=== PATIENT | female | born 1945 | race Caucasian/White ===

== ENCOUNTER 2016-10-20 11:23 | Emergency (ER) | payer MEDICARE ==
[2016-10-20] MEDS ORDERED: NACL 0.9% 500 ML 500 ML IV ONE ×2 (12:09→16:30)
[2016-10-20] MEDS ORDERED: ZOFRAN IV ONE (12:10)
[2016-10-20 12:28] LABS: Hematocrit 38.8 % (30.3-42.9); Hemoglobin 12.7 gm/dl (10.1-14.3); Mean Corpuscular HGB Conc 33 % (30-34); Mean Corpuscular Hemoglobin 28 pg (28-32); Mean Corpuscular Volume 86 fl (79-97); Platelet Count 342 K/mm3 (140-440); Red Cell Distribution Width 13.5 % (13.2-15.2); White Blood Count 8.5 K/mm3 (4.5-11.0)
--- NOTE | 2016-10-20 12:55 | Emergency Department Report ---
HPI - General Chief Complaint: Nausea/Vomiting/Diarrhea Time Seen by Provider: 10/20/16 12:04 - HPI HPI: This is a 71-year-old female who presents to the emergency department from home, with her daughter bedside translating, with complaint of a 2 day history of nausea and vomiting. Over this time she has been complaining of some generalized weakness, decreased appetite and increased fatigue. She also complains of some bilateral shoulder pain without any known trauma. She has a history of diabetes and hypertension. She is not taken anything for symptoms prior to presentation. No recent travel or sick contacts at home. Her primary care doctor is a Dr. Bose. She denies any tobacco or illicit drug use or abuse. ED Past Medical Hx - Past Medical History Hx Hypertension: Yes Hx Diabetes: Yes Additional medical history: high cholesterol - Social History Smoking Status: Never Smoker Substance Use Type: None - Medications Home Medications: Home Medications Medication Instructions Recorded Confirmed Last Taken Type Acarbose 25 mg PO TID 09/22/16 10/20/16 09/21/16 History Cyclobenzaprine 10 mg PO TID 09/22/16 10/20/16 09/21/16 History Metformin HCl 500 mg PO DAILY 09/22/16 10/20/16 09/21/16 History Aspirin [Aspirin BABY CHEW TAB] 81 mg PO QDAY #30 tab.chew 09/27/16 10/20/16 Unknown Rx Carvedilol [Coreg] 3.125 mg PO BID #60 tablet 09/27/16 10/20/16 Unknown Rx Lisinopril [Zestril TAB] 5 mg PO QDAY #30 tablet 09/27/16 10/20/16 Unknown Rx Simvastatin 40 mg PO HS #30 09/27/16 10/20/16 Unknown Rx ED Review of Systems ROS: Stated complaint: N/V Other details as noted in HPI Comment: All other systems reviewed and negative Constitutional: weakness. denies: fever Eyes: denies: eye pain, eye discharge, vision change ENT: denies: ear pain, throat pain Respiratory: denies: cough, shortness of breath, wheezing Cardiovascular: denies: palpitations, edema Gastrointestinal: nausea, vomiting Genitourinary: denies: urgency, dysuria, discharge Musculoskeletal: arthralgia. denies: back pain Skin: denies: rash, lesions Neurological: denies: headache, weakness Physical Exam - Physical Exam Vital Signs: Vital Signs 10/20/16 10/20/16 11:59 12:07 Temperature 98.1 F Pulse Rate 114 H Respiratory 18 18 Rate Blood Pressure 112/75 O2 Sat by Pulse 96 96 Oximetry Physical Exam: GENERAL: The patient is well-developed well-nourished. HEENT: Normocephalic. Atraumatic. Extraocular motions are intact. Patient has moist mucous membranes. Pupils equal reactive to light bilaterally. Oropharynx is clear. Poor dentition with multiple missing teeth. NECK: Supple. Trachea is midline. CHEST/LUNGS: Clear to auscultation. There is no respiratory distress noted. HEART/CARDIOVASCULAR: Regular. There is mild tachycardia. There is no gallop rub or murmur. ABDOMEN: Abdomen is soft, nontender. Patient has normal bowel sounds. There is no abdominal distention. SKIN: Skin is warm and dry. NEURO: The patient is awake, alert, and oriented. The patient is cooperative. The patient has no focal neurologic deficits. The patient has normal speech. Cranial nerves II through XII grossly intact. MUSCULOSKELETAL: There is no tenderness or deformity. There is no limitation range of motion. There is no evidence of acute injury. Muscle strength 5 out of 5 upper and lower extremities bilaterally. ED Course Vital Signs 10/20/16 10/20/16 11:59 12:07 Temperature 98.1 F Pulse Rate 114 H Respiratory 18 18 Rate Blood Pressure 112/75 O2 Sat by Pulse 96 96 Oximetry ED Medical Decision Making - Lab Data Result diagrams: 10/20/16 12:11 10/20/16 12:11 - EKG Data -: EKG Interpreted by Ut EKG shows normal: sinus rhythm, axis, intervals, QRS complexes, ST-T waves (T- wave inversions to the anterior leads) Rate: tachycardia (114 bpm) - EKG Data When compared to previous EKG there are: changes noted (new T-wave inversions to the anterior leads when compared to 09/21/16) Interpretation: other (sinus rhythm, tachycardia, T-wave inversions to the anterior leads) - Radiology Data Radiology results: report reviewed CT angiography of the chest shows no evidence of pulmonary embolus. Indeterminate left apical density. This most likely represents focal pleural scarring however a pleural-based neoplasm is difficult to completely exclude. CT of the abdomen and pelvis with IV contrast does not show any acute process. - Medical Decision Making 71-year-old female presents to the emergency department with complaint of a 2 day history of nausea and vomiting. Chest complains of some generalized fatigue and/or weakness. However the patient appears to be a very spry 71-year- old female. She has full muscle strength to the upper and lower extremities. There are no focal, motor or sensory deficits currently and her cranial nerves are intact. Labs are mostly unremarkable. There is no leukocytosis, electrolyte abnormalities, renal insufficiency, glucose abnormalities. She has a negative troponin. She has normal-appearing LFTs and bilirubin. However the patient does have a elevated lipase of 140. This is most likely secondary to her recent vomiting but pancreatitis should be ruled out. The patient had some tachycardia and with her generalized weakness complaint, a d-dimer was sent, that came back elevated and equivocal. For these reasons, a CT angiography of the chest and a CT of the abdomen and pelvis with IV contrast were done. The CT of the abdomen and pelvis was unremarkable. The CT angiography of the chest did not show any pulmonary and wasn't but showed some possible apical scarring but cannot completely exclude a pleural-based neoplasm. The patient had 1 dose of Zofran while in the emergency department. She has been reevaluated multiple times of her multiple hours and is feeling improved and has had no further nausea or vomiting. When I went to reevaluate the patient she is asking when she gets to go home. EKG does not show any signs of ST elevation [place] or dysrhythmia. The patient at no point has complained of any chest pain, back pain, shortness of breath. She does not appear to be in any acute distress. For all these reasons patient will be discharged home to follow-up with her primary care doctor. She will return to the ER with any worsening of her symptoms or any acute distress. - Differential Diagnosis WI, Gastroenteritis, Colitis, Viral Syndrome Critical Care Time: No Critical care attestation.: If time is entered above; I have spent that time in minutes in the direct care of this critically ill patient, excluding procedure time. ED Disposition Clinical Impression: Dehydration Nausea & vomiting Qualifiers: Vomiting type: unspecified Vomiting Intractability: non-intractable Qualified Code(s): R11.2 - Nausea with vomiting, unspecified Fatigue Qualifiers: Fatigue type: unspecified Qualified Code(s): R53.83 - Other fatigue Disposition: DISCHARGED TO HOME OR SELFCARE Is pt being admited?: No Condition: Stable Instructions: Dehydration (ED), Acute Nausea and Vomiting (ED), Fatigue (ED) Additional Instructions: Please follow-up with your primary care doctor in the next few days without fail. Return to the emergency department with any worsening of your symptoms, or any acute distress. Referrals: PRIMARY CARE, [Primary Care Provider] - [facility] Time of Disposition: 16:09
[2016-10-20 12:56] LABS: Alanine Aminotransferase 16 units/L (7-56); Albumin 3.7 g/dL (3.9-5); Albumin/Globulin Ratio 0.9 %; Alkaline Phosphatase 49 units/L (35-129); Anion Gap 21 mmol/L; BUN/Creatinine Ratio 36.66; Blood Urea Nitrogen 33 mg/dL (7-17); Calcium 9.8 mg/dL (8.4-10.2); Carbon Dioxide 27 mmol/L (22-30); Chloride 94.4 mmol/L (98-107); Glucose 153 mg/dL (65-100); Lipase 144 units/L (13-60); Potassium 4.3 mmol/L (3.6-5.0); Sodium 138 mmol/L (137-145)
[2016-10-20 13:01] LABS: Bilirubin,Urine NEG (Negative); Blood,Urine NEG (Negative); Ketones,Urine TR mg/dL (Negative); Leukocyte Esterase,Urine NEG (Negative); Nitrite,Urine NEG (Negative); Protein,Urine <15 mg/dL mg/dL (Negative); Urobilinogen,Urine < 2.0 mg/dL (<2.0); WBC,Urine < 1.0 /HPF (0.0-6.0)
[2016-10-20] MEDS ORDERED: NACL ONE (13:24)
--- NOTE | 2016-10-20 13:32 | Admit Criteria Form ---
Admission Criteria Documentation: GASTROENTEROLOGY GRG Clinical Indications for Admission to Inpatient Care (Place 'X' for any and all applicable criteria): Hospital admission is needed for appropriate care of the patient because of ANY ONE of the following: [ ]I. Hemoperitoneum(7) [ ]II. Ascites requiring acute treatment indicated by ANY ONE of the following( 8)(9): [ ]a) Hemodynamic instability remaining after emergency or observation level care (as appropriate) [ ]b) Peritoneal signs present (eg, abdominal rigidity, rebound tenderness, absent bowel sounds) [ ]c) Tachypnea, Hypoxemia, or other respiratory symptoms remain after emergency or observation level care (as appropriate) [ ]d) Suspected infected ascites as indicated by ANY ONE of the following: [ ]i) Temperature greater than 100 degrees F (37.8 degrees C) [ ]ii) Abdominal pain or tenderness not relieved by paracentesis [ ]iii) Systemic signs of infection (eg, elevated WBC count, fever) [ ]iv) Ascitic fluid analysis consistent with infection ( eg, elevated WBC count): [ ]v) Vital sign abnormality [ ]III. Suspected acute intra-abdominal process indicated by ANY ONE of the following(1)(2)(3)(4)(5): [ ]a) Hemodynamic instability [ ]b) Peritoneal signs present (eg, abdominal rigidity, rebound tenderness, absent bowel sounds) [ ]c) Bowel obstruction suspected (eg, severe vomiting, abdominal distension) [ ]d) Suspected mesenteric ischemia or ischemic colitis(6) [ ]e) Other signs or symptoms of acute abdominal disease (eg, severe pain, free air): [ ]IV. Severe liver disease indicated by ANY ONE of the following(8)(9)(10)(11)( 12)(13)(14): [ ]a) Acute hepatitis (eg, transaminase level greater than 1000 IU/L) [ ]b) Acute elevation of prothrombin time to more than 50% above normal or INR greater than 1.5 [ ]c) Bilirubin greater than 20 mg/dL (342 micromoles/L) (15) [ ]d) New-onset or worsening hepatic encephalopathy [ ]e) Acute liver necrosis [ ]f) Vomiting or dehydration that is severe of persistent [ ]g) Hemodynamic instability due to liver disease [ ]h) Acute renal failure [ ]i) Hepatic abscess [ ]j) Dehydration that is severe or persistent [ ]k) Hepatic hydrothorax(21) [ ]l) Other indications of severe liver disease (eg, persistent fever , ingestion of hepatotoxin) [ ]V. Severe diarrhea indicated by ANY ONE of the following(17)(18)(19)(20)(21)( 22)(23): [ ]a) High fever or other high-risk infection situation [ ]b) Intractable bloody diarrhea (eg, more than 6 bloody stools per day) [ ]c) Suspected Clostridium difficile-associated diarrhea(24) [ ]d) Change in mental status that persists after emergency or observation level care (as appropriate) [ ]e) Severe dehydration (eg, greater than 9% loss of body weight in children) [ ]f) Inability to maintain hydration [ ]g) Peritoneal signs present (eg, abdominal rigidity, rebound tenderness, absent bowel sounds) [ ]h) Abdominal ischemia suspected(6) [ ]i) Hemodynamic instability that persists after emergency or observation level care (as appropriate) [ ]j) Severe electrolyte abnormalities requiring inpatient care [ ]k) Acute renal failure [ ]. Suspected toxic megacolon(5)(6) [ ]VII.Severe dysphagia indicated by ANY ONE of the following(25)(26): [ ]a) Suspected esophageal perforation or fistula(27) [ ]b) Suspected cause that requires inpatient care (eg, caustic ingestion, severe esophagitis) (28) [ ]c) Severe dehydration (eg, greater than 9% loss of body weight in children) [ ]d) Inability to manage secretions or maintain hydration [ ]e) Hemodynamic instability that persists after emergency or observation level care (as appropriate) [ ]f) Severe electrolyte abnormalities requiring inpatient care [ ]g) Acute renal failure [ ]VIII.Vomiting and ANY ONE of the following (29)(30)(31)(32): [ ]a) High fever or other high-risk infection situation [ ]b) Change in mental status that persists after emergency or observation level care (as appropriate) [ ]c) Severe dehydration (e.g., greater than 9% loss of body weight in children) [ ]d) Peritoneal signs present (e.g., abdominal rigidity, rebound tenderness, absent bowel sounds) [ ]e) Hemodynamic instability that persists after emergency or observation level care (as appropriate) [ ]f) Severe electrolyte abnormalities requiring inpatient care [ ]g) Acute renal failure [ ]h) Bowel obstruction suspected (e.g., severe vomiting, abdominal distension) [ ]i) Vomiting that is severe or persistent after medical treatment [ ]IX. Significant dehydration indicated by ANY ONE of the following(23)(24)(25) [ ]a) Clinical findings of severe dehydration indicated by ANY ONE of the following: [ ]i) Acute loss of weight from baseline (5% of body weight in adults, 9% in pediatric patients) [ ]ii) Hemodynamic instability [ ]iii) Acute renal failure [ ]iv) Serum sodium greater than 150 mEq/L (mmol/L) [ ]b) Dehydration that is persistent indicated by ALL of the following: [ ]i) Oral rehydration therapy not tolerated or insufficient to adequately correct dehydration [ ]ii) Appropriate intravenous treatment (eg, fluids) does not readily correct dehydration hours of (ie, after 12 to 24 of treatment) [ ]X. Gastroparesis and ANY ONE of the following(37)(38)(39): [ ]a) Dehydration that is severe or persistent [ ]b) Severe electrolyte abnormalities requiring inpatient care [ ]c) Acute renal failure [ ]d) Vomiting that is severe or persistent [ ]XI. Complications of transplanted liver indicated by ANY ONE of the following (40)(41): [ ]a) Acute graft rejection requiring inpatient management (eg, intravenous immunosuppression)(42) [ ]b) Failure of transplanted liver as indicated by ANY ONE of the following: [ ]i) Acute hepatitis (eg, transaminase level greater than 1000 International Units per liter (IU/L)) [ ]ii) Acute elevation of prothrombin time to more than 50% above baseline or INR greater than 1.5 [ ]iii) Bilirubin greater than 20 mg/dL (342 micromoles/L) [ ]iv) New-onset or worsening hepatic encephalopathy [ ]v) Acute elevation of serum ammonia level (eg, greater than 210 mcg/dL (150 micromoles/L)) [ ]vi) Acute liver necrosis [ ]c) Infection requiring inpatient management (eg, Hemodynamic instability, need for intravenous antimicrobial treatment)(43)(44)(45)(46)(47)(48)(49)(50) [ ]d) Other complication of transplanted liver (eg, thrombosis, autoimmune hepatitis, variceal bleeding) requiring inpatient management(51)(52) [ ]XII Complications of transplanted pancreas indicated by ANY ONE of the following(53): [ ]a) Acute graft rejection requiring inpatient management (eg, intravenous immunosuppression)(42)(54) [ ]b) Failure of transplanted pancreas as indicated by ANY ONE of the following: [ ]i) Serum amylase greater than 3 times the upper limit of normal or baseline [ ]ii) Serum lipase greater than 3 times the upper limit of normal or baseline [ ]iii) Imaging findings consistent with pancreatic inflammation or necrosis [ ]c) Infection requiring inpatient management (eg, Hemodynamic instability, need for intravenous antimicrobial treatment)(43)(44)(45)(46)(47)(48)(49)(50) [ ]d) Other complication of transplanted liver (eg, thrombosis, autoimmune hepatitis, variceal bleeding) requiring inpatient management(51)(52) [ ]X. Gastroenterology condition and ALL of the following: [ ]a) Symptom or finding for which emergency and observation care have failed or are not considered appropriate (Also use General Criteria: Observation Care as appropriate) [ ]b) Presence of ANY ONE of the following: [ ]i) A General Admission Criteria [ ]ii) A Pediatric General Admission Criteria. The original [facility] content created by [employer] has been revised. The portions of the content which have been revised are identified through the use of italic text or in bold,and [facility] has neither reviewed nor approved the modified material. All other unmodified content is copyright [email or web address]. Please see references footnoted in the original [facility]formerly [facility]3] [employer] edition 2016
--- NOTE | 2016-10-20 14:31 | XRay Report ---
Abdominal series: Nausea. There is minimal blunting of the left costophrenic angle. There is coarsening of interstitial pattern bilaterally. No focal nodules or infiltrates and no cardiac enlargement. The abdominal gas pattern is unremarkable. There is a moderate volume of fecal matter scattered in the colon. No free air. No suspicious soft tissue calcifications. Impressions: No acute pathology identified.
--- NOTE | 2016-10-20 15:55 | Cat Scan Report ---
CTA chest: Tachycardia, hypoxia, elevated d-dimer From the thoracic inlet to the diaphragms. Coronal and sagittal 2-D reformatted images as well as a 3-D MIP image included. There is good opacification of the pulmonary vessels, cardiac chambers, and thoracic aorta. No filling defects identified. The thoracic aorta is normal in size and contour. There is some scattered shotty mediastinal and hilar lymph nodes. The central airway is patent. In the left apex there is a focal contiguous density with the medial pleural surface measuring approximately 1 cm. The pulmonary margins are somewhat stellate. Mild apical pleural scarring is noted on the right. The lungs otherwise appear generally clear of any nodule or infiltrate. Impressions: 1. No evidence of pulmonary embolus. 2. Indeterminate left apical density. This most likely represents focal pleural scarring however a pleural-based neoplasm is difficult to exclude. Consider PET scan.
--- NOTE | 2016-10-20 16:02 | Cat Scan Report ---
CT abdomen with contrast: Nausea and vomiting. Transverse images obtained through the abdomen following IV contrast with coronal and sagittal 2-D reformatted images. The abdominal organs are generally unremarkable. The gallbladder is mildly distended. There is a small exophytic cyst in the lateral right mid kidney. Structures otherwise appear generally unremarkable. Abdominal aorta is normal in size and contour. Minimal calcification is present. No periaortic or mesenteric adenopathy identified. The unopacified bowel is unremarkable. The appendix at present is not identified. No inflammatory changes present. No pelvic masses. No free fluid. The bones appear generally demineralized. Impressions: Unremarkable exam for age.
[2016-10-20] MEDS ORDERED: NACL 0.9% 1000 ML 1,000 ML IV ONE (17:44)
[2016-10-20 20:11] VITALS: BP 138/54
== END 2016-10-20 20:18 | disposition home or self-care (01) ==
LOC: ED 11:23
DX: E86.0 Dehydration (principal); R11.2 Nausea with vomiting, unspecified; R53.83 Other fatigue; I10 Essential (primary) hypertension; E11.9 Type 2 diabetes mellitus without complications; E78.00 Pure hypercholesterolemia, unspecified
CPT/HCPCS: 36415; 71275; 74022; 74177; 80053; 81001; 83690; 84484; 85027; 85379; 93005; 93010; 96361; 96374; 99285; J2405; J7030; J7040; Q9967